=== PATIENT | male | born 1935 | race Caucasian/White ===

== ENCOUNTER 2016-10-16 01:06 | Emergency (ER) | payer MEDICARE, BC ==
[~2016-10-16 01:06] MED LIST: MOBIC PO; MOTRIN600 MG PO; PREDNISONE10 MG/DOSE PO
== END 2016-10-16 01:07 | disposition home or self-care (01) ==
LOC: CED 01:06
DX: Z48.00 Encounter for change or removal of nonsurgical wound dressing (principal); I10 Essential (primary) hypertension; K21.9 Gastro-esophageal reflux disease without esophagitis
CPT/HCPCS: 99282

== ENCOUNTER 2016-11-15 16:59 | Emergency (ER) | payer MEDICARE, BC ==
--- NOTE | ~2016-11-15 | CT71 ---
[facility] A Service of [facility] RADIOLOGY TEXT RESULTS PATIENT: SPENCER ESTRADA LOCATION: [facility] : 34 UNIT #: [id number] AGE: [address]: Roberto Hernandez MD SEX: M ORDER DR: [id number] [facility] [address] [place], [place] [address] [id number] E MR#: [id number] #: [id number] NAME: SPENCER ESTRADA : 1935 SEX: M STUDY DATE/TIME: 11/15/2016 16:27 UNIT: [facility] ROOM: STUDY DESCRIPTION: CT Head Wo Contrast Attending Physician: Roberto Hernandez M.D. Ordering Physician: Roberto Hernandez M.D. Primary Care Physician: Sara Martinez MEDICAL IMAGING REPORT This report is preliminary unless electronic signature is present EXAM CT head without contrast, 11/15/[address] head without contrast dated 06/14/2016. HISTORY Patient fell 1 hour before coming to the hospital. Hit head with left forehead injury and pain. This CT exam was performed with one or more of the following radiation dose reduction techniques: automatic exposure control, adjustment of mA and/or kV according to patient size, and iterative reconstruction. FINDINGS CT of the head was obtained without contrast in the axial plane as per the protocol. Scattered hypodensities are noted in the brain involving the periventricular white matter, the posterior and lateral aspect of the posterior limb of the left internal capsule and the adjacent external/extreme capsule. Stable. Atherosclerotic arteriovascular calcifications are noted in bilateral ICA and vertebral arteries. No acute intracranial hemorrhage, hydrocephalus or midline shift. Soft tissue swelling is noted in the left side of the forehead extending to the anterolateral aspect. It extends from the forehead down to the superior aspect of the left eye. Paranasal sinuses, mastoid air cells are well aerated. Orbits with ocular structures do not demonstrate any significant abnormality. IMPRESSION 1. Soft tissue swelling is noted in the left side of the forehead extending to the left anterolateral aspect. No underlying fracture or acute intracranial hemorrhage. [facility] A Service of [facility] & [facility] RADIOLOGY TEXT RESULTS PATIENT: SPENCER ESTRADA LOCATION: [facility] : 34 UNIT #: [id number] AGE: [address]: Roberto Hernandez MD SEX: M ORDER DR: 2. Scattered hypodensities are noted in the brain, stable and likely related to old insult. No acute intracranial abnormality is seen. Dictated by... Chivo Grant M.D. THIS IS AN ELECTRONICALLY VERIFIED REPORT Chivo Grant M.D. at 11/16/2016 1:48 PM CPR/ljd TD: 11/16/2016 04:40 JOB #: [id number] MEDICAL IMAGING REPORT Page 1 of 1 COPY
--- NOTE | ~2016-11-15 | CR172 ---
[facility] A Service of [facility] & [facility] RADIOLOGY TEXT RESULTS PATIENT: SPENCER ESTRADA LOCATION: [facility] : 34 UNIT #: [id number] AGE: [address]: Roberto Hernandez MD SEX: M ORDER DR: [id number] [facility] [address]. [place], [place] [address] [id number] E MR#: [id number] Acc #: [id number] NAME: SPENCER ESTRADA : 1935 SEX: M STUDY DATE/TIME: 11/15/2016 16:16 UNIT: [facility] ROOM: STUDY DESCRIPTION: CR Knee 3 Views Lt Attending Physician: Roberto Hernandez M.D. Ordering Physician: Roberto Hernandez M.D. Primary Care Physician: Sara Martinez MEDICAL IMAGING REPORT This report is preliminary unless electronic signature is present EXAM Left knee 3 views. HISTORY Knee pain after fall today. Bruising. FINDINGS 3 views of the left knee demonstrate satisfactory bone alignment. No fracture, joint space narrowing or effusion. Mild generalized demineralization. Mild soft tissue swelling over the anterior margin of the patella. IMPRESSION 1. Satisfactory bone alignment. 2. No fracture, joint space narrowing or effusion. 3. Mild soft tissue swelling over the anterior margin of the patella. Dictated by... Ankit Parmar M.D. THIS IS AN ELECTRONICALLY VERIFIED REPORT Ankit Parmar M.D. at 11/16/2016 10:59 AM GISELL/gianna TD: 11/16/2016 04:16 JOB #: [id number] MEDICAL IMAGING REPORT Page 1 of 1 COPY
--- NOTE | ~2016-11-15 | CR210 ---
[facility] A Service of [facility] RADIOLOGY TEXT RESULTS PATIENT: SPENCER ESTRADA LOCATION: [facility] : 34 UNIT #: [id number] AGE: [address]: Roberto Hernandez MD SEX: M ORDER DR: [id number] [facility] [address]. [place], [place] [address] [id number] E MR#: [id number] Acc #: [id number] NAME: SPENCER ESTRADA : 1935 SEX: M STUDY DATE/TIME: 11/15/2016 16:13 UNIT: [facility] ROOM: STUDY DESCRIPTION: CR Ribs Uni 2 View W PA Ch Lt Attending Physician: Roberto Hernandez M.D. Ordering Physician: Roberto Hernandez M.D. Primary Care Physician: Daysi MartinezARegla MEDICAL IMAGING REPORT This report is preliminary unless electronic signature is present EXAM Frontal view of the chest with left-sided rib views, 11/15/2016 COMPARISON Single view chest dated 08/24/2016. HISTORY Patient fell today with left-sided chest pain. FINDINGS Frontal view of the chest was obtained. Hyperinflated emphysematous lung changes are redemonstrated along with postoperative changes along the right side of the superior mediastinum extending inferiorly towards the level of the aortic arch. No obvious acute cardiopulmonary disease is seen. Previously noted opacity in the right lung apex is again noted along with mild left pleural thickening/left lung apical scarring. Stable. There is diffuse bony osteopenia. 3 views of the left-sided ribs do not demonstrate any obvious acute displaced fracture. S-shaped scoliosis of the thoracolumbar spine is seen. Dictated by... Chivo Grant M.D. THIS IS AN ELECTRONICALLY VERIFIED REPORT Chivo Grant M.D. at 11/16/2016 1:48 PM CPR/ljd TD: 11/16/2016 04:30 JOB #: [id number] MEDICAL IMAGING REPORT [facility] A Service of [facility] RADIOLOGY TEXT RESULTS PATIENT: SPENCER ESTRADA LOCATION: [facility] : 34 UNIT #: [id number] AGE: [address]: Roberto Hernandez MD SEX: M ORDER DR: Page 1 of 1 COPY
[2016-11-15 17:04] LABS: BASOPHIL# 0.1 X10e3 (0-0.3); BASOPHIL% 0.9 % (0-2.5); EOSINOPHIL# 0.1 X10e3 (0-0.7); EOSINOPHIL% 0.8 % (0.0-7.0); HEMATOCRIT 41.5 % (38.0-50.0); HEMOGLOBIN 13.4 gm/dL (13.0-16.0); LYMPHOCYTE# 1.7 X10e3 (1.0-3.5); MEAN CORPUSCULAR HEMOGLOBIN 29.7 PG (28-34); MEAN CORPUSCULAR HGB CONC 32.3 g/dL (30-36); MEAN PLATELET VOLUME 8.9 FL (6.5-11.5); MONOCYTE# 1.1 X10e3 (0-1.0); MONOCYTE% 13.9 % (3.0-12.0); NEUTROPHIL# 4.7 X10e3 (1.5-7.1); NEUTROPHIL% 62.4 % (40-75); PLATELET COUNT 248 X10e3 (140-420); RED BLOOD COUNT 4.51 X10e (3.90-5.60); RED CELL DISTRIBUTION WIDTH 14.9 % (11.0-15.5); WHITE BLOOD COUNT 7.6 X10e3 (4.0-10.5)
[2016-11-15 17:05] LABS: DIFF IND NO
[2016-11-15 17:31] LABS: ALBUMIN SERUM 4.8 g/dL (3.5-5.0); BILIRUBIN, DIRECT 0.1 mg/dL (0.0-0.2); BILIRUBIN,INDIRECT 0.1 mg/dL (0.0-0.9); BILIRUBIN,TOTAL 0.2 mg/dL (0.2-2.0); CALCIUM SERUM 9.8 mg/dL (8.4-10.2); GLOM FILT RATE Estimated 69.8 mL/min (>60); POTASSIUM 4.5 mmol/L (3.5-5.1); PROTEIN TOTAL SERUM 8.3 g/dL (6.0-8.3)
== END 2016-11-15 18:06 | disposition home or self-care (01) ==
LOC: CED 16:59
PROVIDERS: Emergency Medicine
DX: S00.83XA Contusion of other part of head, initial encounter (principal); S80.02XA Contusion of left knee, initial encounter; S20.219A Contusion of unspecified front wall of thorax, initial encounter; I10 Essential (primary) hypertension; Z23 Encounter for immunization; W01.10XA Fall on same level from slipping, tripping and stumbling with subsequent striking against unspecified object, initial encounter; Y92.410 Unspecified street and highway as the place of occurrence of the external cause
CPT/HCPCS: 36415; 70450; 71101; 73562; 80048; 80076; 85025; 85730; 90471; 90715; 99284

== ENCOUNTER 2016-12-06 11:24 | Emergency (ER) | payer MEDICARE, BC ==
--- NOTE | ~2016-12-06 | CT104 ---
[facility] A Service of [facility] RADIOLOGY TEXT RESULTS PATIENT: SPENCER ESTRADA LOCATION: [facility] : 34 UNIT #: [id number] AGE: [address]: Chris Bennett MD SEX: M ORDER DR: [id number] [facility] [address] [place], [place] [address] [id number] E MR#: [id number] Acc #: [id number] NAME: SPENCER ESTRADA : 1935 SEX: M STUDY DATE/TIME: 12/06/2016 11:52 UNIT: [facility] ROOM: STUDY DESCRIPTION: CT Orbits Wo Contrast Attending Physician: Lauro Bennett M.D. Ordering Physician: Lauro Bennett M.D. Primary Care Physician: Sang Santoyo PKainARegla MEDICAL IMAGING REPORT This report is preliminary unless electronic signature is present EXAM Orbits CT without contrast date of study 12/06/2016 PROCEDURE Axial unenhanced orbit CT with multiplanar reformats. This CT exam was performed with one or more of the following radiation dose reduction techniques: automatic exposure control, adjustment of mA and/or kV according to patient size, and iterative reconstruction. HISTORY Recent fall with persistent left facial and periorbital swelling and pain since Wednesday. FINDINGS There is no fracture. There is left periorbital soft tissue swelling, but no evidence on these unenhanced images of postseptal cellulitis or other acute process. There is some slight left maxillary sinus mucosal thickening and a small left maxillary roof retention cyst. IMPRESSION Preseptal soft tissue swelling, but no evidence on this unenhanced CT of postseptal inflammatory change. No fracture. Dictated by... Ismael López M.D. THIS IS AN ELECTRONICALLY VERIFIED REPORT Ismael López M.D. at 12/07/2016 10:31 AM ORIN/dex TD: 12/06/2016 14:46 [facility] A Service of [facility] RADIOLOGY TEXT RESULTS PATIENT: SPENCER ESTRADA [id number] 34 UNIT #: [id number] AGE: [address]: Chris Bennett MD SEX: M ORDER DR: JOB #: [id number] MEDICAL IMAGING REPORT Page 1 of 1 COPY
== END 2016-12-06 13:30 | disposition home or self-care (01) ==
LOC: CED 11:24
DX: S00.83XA Contusion of other part of head, initial encounter (principal); F43.10 Post-traumatic stress disorder, unspecified; F32.9 Major depressive disorder, single episode, unspecified; F41.9 Anxiety disorder, unspecified; W01.10XA Fall on same level from slipping, tripping and stumbling with subsequent striking against unspecified object, initial encounter
CPT/HCPCS: 70480; 99284